=== PATIENT | male | born 1995 | race Two or more races ===

== ENCOUNTER 2018-02-07 09:06 | Emergency (ER) | payer OTHER ==
[~2018-02-07] VITALS: Ht 167.6 cm; Wt 65.8 kg
[2018-02-07] MEDS ORDERED: NKM (09:18)
[2018-02-07 09:20] VITALS: BP 134/81
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
--- NOTE | 2018-02-07 10:10 | Diagnostic Imaging Report ---
Indication: Head trauma. Headache Technique: Contiguous 5 mm thick transaxial imaging of the head obtained in a Siemens Sensation [address] scanner. Soft tissue and bone windows generated. Automatic Exposure Control was utilized. Total Dose length Product (DLP): 1392.[address] Dose Index Volume (CTDIvol): 70.38 mGy Comparison: none Findings: The size and configuration of the cortical sulci, basal cisterns, and ventricles are within normal limits for age. There is no mass effect, midline shift, or edema identified. There is no evidence of acute hemorrhage or abnormal intra-axial or extra-axial fluid collections. The bones and soft tissues are unremarkable. Impression: No mass effect, edema or acute bleed. The CT scanner at [facility] is accredited by the [employer] and the scans are performed using dose optimization techniques as appropriate to a performed exam including Automatic Exposure control.
[2018-02-07 10:23] VITALS: BP 134/81
== END 2018-02-07 10:31 | disposition home or self-care (01) ==
LOC: EMR 09:29
DX: S09.90XA Unspecified injury of head, initial encounter (principal); V13.4XXA Pedal cycle driver injured in collision with car, pick-up truck or van in traffic accident, initial encounter; Y92.410 Unspecified street and highway as the place of occurrence of the external cause
CPT/HCPCS: 70450; 99284

== ENCOUNTER 2018-10-28 22:36 | Emergency (ER) | payer OTHER ==
[~2018-10-28] VITALS: Ht 162.6 cm; Wt 78.0 kg
[~2018-10-28 22:36] MED LIST: NKM
--- NOTE | 2018-10-28 22:57 | NUR ---
ED Nurse Note: Patient walk in with parents c/o cough, sorethroat, headache since yesterday. pt complains of 8/10 pain. will continue to monitor.
[2018-10-28 22:58] VITALS: BP 139/71
[2018-10-28] MEDS ORDERED: ZITHROMAX250 MG ORAL (23:42)
[2018-10-28] MEDS ORDERED: NAPROXEN375 M2 ORAL (23:42)
[2018-10-28 23:47] VITALS: BP 139/71
--- NOTE | 2018-10-28 23:47 | NUR ---
ER DISCHARGE NOTE: Patient is cleared to be discharged per ERMD, pt is aox4, on room air, with stable vital signs. pt was given dc and prescription instructions, pt was able to verbalize understanding, pt id band removed without complications. pt is able to ambulate with steady gait. pt took all belongings.
--- NOTE | 2018-11-01 19:29 | Emergency Room Report ---
History of Present Illness General Chief Complaint: Upper Respiratory Illness Source: Patient Present Illness HPI Patient is a 23-year-old male presented after increased cough and congestion. Patient reports of increased nasal congestion as well as productive cough.Patient had sore throat as well as fever. He had been having some subjective fever. He denies any shortness of breath. Patient did not have any history of pulmonary disease. Allergies: Coded Allergies: No Known Allergies (Unverified , 02/07/18) Patient History Past Medical History: see triage record Reviewed Nursing Documentation: PMH: Agreed; PSxH: Agreed Nursing Documentation-PMH Past Medical History: No Stated History Review of Systems All Other Systems: negative except mentioned in HPI Physical Exam Vital Signs Date Time Temp Pulse Resp B/P (MAP) Pulse Ox O2 Delivery O2 Flow Rate FiO2 10/28/18 22:51 99.5 113 18 139/71 95 Room Air Sp02 EP Interpretation: reviewed, normal General Appearance: normal inspection, well appearing, no apparent distress, alert, GCS 15 Head: atraumatic ENT: normal ENT inspection, hearing grossly normal, normal voice Neck: normal inspection, full range of motion, supple, no bony tend Respiratory: normal inspection, no respiratory distress, no retraction, no wheezing, crackles Cardiovascular #1: regular rate, rhythm, no edema Gastrointestinal: normal inspection, normal bowel sounds, non tender, soft, no guarding, no hernia Genitourinary: no CVA tenderness Musculoskeletal: normal inspection, back normal, normal range of motion Neurologic: normal inspection, alert, oriented x3, responsive, 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 Differential diagnosis included but was not limited to bronchitis, pneumonia, pulmonary embolism, pericarditis, asthma, foreign body. Patient has a benign exam and does not appear to require any further imaging or laboratory testing at this time. Patient was given prescriptions for medication for symptomatic treatment. Patient appears to have some pneumonitis and will be given a prescription for azithromycin. He was advised to follow-up with his primary care physician for recheck. Last Vital Signs Date Time Temp Pulse Resp B/P (MAP) Pulse Ox O2 Delivery O2 Flow Rate FiO2 10/28/18 23:47 99.5 98 18 139/71 95 Room Air Status: improved Disposition: HOME, SELF-CARE Condition: Stable Scripts Azithromycin* (ZITHROMAX*) 250 Mg Tablet 250 MG ORAL DAILY, #6 TAB 0 Refills Take two tables once daily for 1 day, then one tablet once daily for 4 days. Prov: West Arreguin MD 10/28/18 Naproxen* (NAPROXEN*) 375 Mg Tablet.dr 375 MG ORAL TWICE A DAY, #14 TAB Prov: West Arreguin MD 10/28/18 Referrals: [facility],REFERRING (PCP) Patient Instructions: Pneumonitis West Arreguin MD Nov 01, 2018 19:29
== END 2018-10-28 23:47 | disposition home or self-care (01) ==
LOC: EMR 23:08
DX: J18.9 Pneumonia, unspecified organism (principal)
CPT/HCPCS: 99282

== ENCOUNTER 2019-08-26 15:42 | Emergency (ER) | payer SELFPAY ==
[~2019-08-26] VITALS: Ht 165.1 cm; Wt 72.6 kg
[~2019-08-26 15:42] MED LIST changes: +NAPROXEN375 M2 ORAL; +ZITHROMAX250 MG ORAL
[2019-08-26 16:05] VITALS: BP 148/84
[2019-08-26] MEDS ORDERED: Azithromycin 250mg tab ORAL ONE (16:30)
[2019-08-26] MEDS ORDERED: Lidocaine 1% MPF 10mg/ml 5ml INJ ONE (16:30)
[2019-08-26] MEDS ORDERED: Bicillin LA 2.4MMU/4ML SYR IM ONE (16:30)
--- NOTE | 2019-08-26 16:30 | NUR ---
ED Nurse Note: Patient arrived to ED from home complaining of rash on his penis x 1 day. He states he has been having unprotected sex with his girlfriend. Patient is afebrile, no complaints of discharge. Patient AxO x 4. Patient resting in bed.
[2019-08-26 16:31] LABS: APPEARANCE,URINE CLEAR; BILIRUBIN, URINE NEGATIVE (NEGATIVE); COLOR,URINE PALE YELLOW; GLUCOSE, URINE (UA) NEGATIVE (NEGATIVE); KETONES,URINE NEGATIVE (NEGATIVE); LEUKOCYTE ESTERASE ,URINE NEGATIVE (NEGATIVE); NITRITE,URINE NEGATIVE (NEGATIVE); PH,URINE 6.5 (4.5-8.0); PROTEIN,URINE NEGATIVE (NEGATIVE); UROBILINOGEN,URINE NORMAL MG/DL (0.0-1.0)
--- NOTE | 2019-08-26 16:59 | Emergency Room Report ---
History of Present Illness General Chief Complaint: Skin Rash/Abscess Source: Patient Present Illness HPI 23-year-old male with no significant past medical history here with significant other complaining of 1 day of a painless rash on penile shaft. Patient reports that he was last sexually active with his girlfriend 3 days ago and noticed a rash today. Denies any penile discharge, urinary frequency and urgency. Reports that he is currently sexually active with one partner. Denies abdominal pain, nausea vomiting, fever and chills. Agrees to be treated prophylactically for chlamydia, gonorrhea, and syphilis. Has not taken medication for symptom relief. Denies condom use Allergies: Coded Allergies: No Known Allergies (Unverified , 02/07/18) Patient History Past Medical History: see triage record Past Surgical History: unable to obtain Pertinent Family History: none Immunizations: UTD Reviewed Nursing Documentation: PMH: Agreed; PSxH: Agreed Nursing Documentation-PMH Past Medical History: No Stated History Review of Systems All Other Systems: negative except mentioned in HPI Physical Exam Vital Signs Date Time Temp Pulse Resp B/P (MAP) Pulse Ox O2 Delivery O2 Flow Rate FiO2 08/26/19 15:57 98.2 81 18 148/84 (105) 97 Room Air Sp02 EP Interpretation: reviewed, normal General Appearance: no apparent distress, alert, GCS 15, non-toxic Head: normocephalic, atraumatic Eyes: bilateral eye normal inspection, bilateral eye PERRL ENT: hearing grossly normal, normal pharynx, no angioedema, normal voice Neck: full range of motion, supple/symm/no masses Respiratory: chest non-tender, lungs clear, normal breath sounds, no rhonchi, no wheezing, speaking full sentences Cardiovascular #1: regular rate, rhythm, no edema, no murmur Gastrointestinal: non tender, soft Rectal: deferred Genitourinary: no CVA tenderness, other - rash noted penile shaft, resembeling primary syphilis Musculoskeletal: back normal Neurologic: alert, oriented Psychiatric: normal inspection, judgement/insight normal Skin: other - penile rash Lymphatic: no adenopathy Medical Decision Making PA Attestation All my diagnosis and treatment plans were reviewed ad discussed with my supervising physician Dr. Aranda Diagnostic Impression: Primary Impression: Penile rash ER Course 23-year-old male with no significant past medical history here with significant other complaining of 1 day of a painless rash on penile shaft. Patient reports that he was last sexually active with his girlfriend 3 days ago and noticed a rash today. Denies any penile discharge, urinary frequency and urgency. Reports that he is currently sexually active with one partner. Denies abdominal pain, nausea vomiting, fever and chills. Agrees to be treated prophylactically for chlamydia, gonorrhea, and syphilis. Has not taken medication for symptom relief. Denies condom use Ddx considered but are not limited to: chlamydia, Gonorrhea, syphilis, HIV, herpes 1 or 2 Vital signs: are WNL, pt. is afebrile H&PE are most consistent with : Penile rash, syphilis ORDERS: UA, ED INTERVENTIONS: Penicillin G, Rocephin, azithromycin DISCHARGE: At this time pt. is stable for d/c to home. Will provide printed patient care instructions, and any necessary prescriptions. Care plan and follow up instructions have been discussed with the patient prior to discharge. Advised patient to have partner tested and treated. Take medication as directed, if worsening symptoms return to emergency room. Last Vital Signs Date Time Temp Pulse Resp B/P (MAP) Pulse Ox O2 Delivery O2 Flow Rate FiO2 08/26/19 16:05 98.2 18 148/84 97 Room Air 08/26/19 15:57 81 Disposition: HOME, SELF-CARE Condition: Stable Referrals: NOT CHOSEN [facility]/,REFERRING (PCP) Patient Instructions: Rash, Syphilis Additional Instructions: Take medication as directed, follow-up with your primary care provider if worsening symptoms return to emergency room Afshan Tobar Aug 26, 2019 16:59
[2019-08-26 17:15] VITALS: BP 129/79
--- NOTE | 2019-08-26 17:15 | NUR ---
ER DISCHARGE NOTE: Patient cleared for DC per Afshan JAMIL, pt AxO x 4, VSS. Patient verbalized understanding of DC instructions. ID band removed. Patient able to ambulate with steady gait, took all belongings.
== END 2019-08-26 17:15 | disposition home or self-care (01) ==
LOC: EMR 16:13
DX: R21 Rash and other nonspecific skin eruption (principal)
CPT/HCPCS: 81003; 96372; 96374; 99283; J0696